=== PATIENT | male | born 1990 | race Caucasian/White ===

== ENCOUNTER 2023-05-22 00:18 | Emergency (ER) | payer BC, OTHER ==
[~2023-05-22] VITALS: Ht 180.3 cm; Wt 70.3 kg
[2023-05-22 01:12] LABS: BASOPHILS # (AUTO) 0.1 K/uL (0.0-0.2); BASOPHILS % (AUTO) 0.8 % (0.0-2.0); EOSINOPHILS # (AUTO) 0.3 K/uL (0.0-0.7); EOSINOPHILS % (AUTO) 3.4 % (0.0-6.0); HEMATOCRIT 44 % (39-51); HEMOGLOBIN 14.7 g/dL (13.5-17.5); LYMPHOCYTES % (AUTO) 22.3 % (20.0-44.0); MEAN CORPUSCULAR HEMOGLOBIN 31 PG (26.0-33.0); MEAN CORPUSCULAR HGB CONC 34 g/dl (31.0-36.0); MEAN CORPUSCULAR VOLUME 92 fL (80-96); MONOCYTES # (AUTO) 0.7 K/uL (0.1-1.30); MONOCYTES % (AUTO) 7.5 % (2.0-12.0); PLATELET COUNT (AUTO) 283 K/uL (150-450); RED BLOOD CELL COUNT(AUTO) 4.77 MIL/uL (4.5-6.0); RED CELL DISTRIBUTION WIDTH 13.5 % (11.5-15.0); WHITE BLOOD COUNT (AUTO) 9.1 K/uL (4.3-11.0)
[2023-05-22 01:21] LABS: CALCIUM, SERUM 9.1 mg/dL (8.5-10.1); CARBON DIOXIDE 30 mmol/L (21-32); CHLORIDE 105 mmol/L (98-107); CREATININE 1.3 mg/dL (0.6-1.3); GLUCOSE 97 mg/dL (74-106); POTASSIUM 3.6 mmol/L (3.5-5.1); SODIUM SERUM 140 mmol/L (136-145); UREA NITROGEN, BLOOD 23 mg/dL (7-18)
[2023-05-22 01:24] LABS: AMPHETAMINE, URINE NEGATIVE (NEGATIVE); BARBITURATE, URINE NEGATIVE (NEGATIVE); BENZODIAZEPINE, URINE NEGATIVE (NEGATIVE); CANNABINOID, URINE NEGATIVE (NEGATIVE); COCCAINE, URINE NEGATIVE (NEGATIVE); OPIATE, URINE NEGATIVE (NEGATIVE); PHENCYCLIDINE SCREEN,URINE NEGATIVE (NEGATIVE)
[2023-05-22 01:34] LABS: NT-PRO BNP 12 pg/mL (0-125)
[2023-05-22 01:39] LABS: THYROID STIMULATING HORMONE 5.963 uIU/mL (0.358-3.74)
[2023-05-22 02:37] VITALS: BP 121/75; TEMP 98; O2SAT 99
== END 2023-05-22 02:38 | disposition home or self-care (01) ==
LOC: ER 00:26
DX: R07.9 Chest pain, unspecified (principal); Z60.2 Problems related to living alone
CPT/HCPCS: 36415; 71045-TC; 80048-TC; 83880; 84439-TC; 84443-TC; 84484-TC; 85025-TC; 85378-TC

== ENCOUNTER 2023-09-29 22:54 | Emergency (ER) | payer OTHER ==
[~2023-09-29] VITALS: Ht 180.3 cm; Wt 70.3 kg
[2023-09-29 23:17] VITALS: TEMP 208.9
[2023-09-30] MEDS ORDERED: SUMATRIPTAN SUCCINATE 6 MG/0.5 ML VIAL SQ ONE (00:25)
[2023-09-30] MEDS: SUMATRIPTAN SUCCINATE 6 MG/0.5 ML VIAL SQ ONE (00:30)
[2023-09-30] MEDS ORDERED: SUMA100T16 PO (01:46)
[2023-09-30 02:00] VITALS: BP 124/72; O2SAT 98
== END 2023-09-30 02:00 | disposition home or self-care (01) ==
LOC: ER 23:01
DX: G43.109 Migraine with aura, not intractable, without status migrainosus (principal); Z60.2 Problems related to living alone
CPT/HCPCS: 99285; 70450; 96372; J3030